=== PATIENT | female | born 1960 | race Two or more races ===

== ENCOUNTER 2016-12-11 15:14 | Emergency (ER) | payer OTHER ==
--- NOTE | 2016-12-11 15:23 | ER Document Report ---
ED Medical Screen (RME) - General Stated Complaint: FACIAL SWELLING Mode of Arrival: Ambulatory Notes: Patient presents to the emergency department with left-sided facial swelling that started last night. Reports little ear and eye pain on right side. Denies f /n/v/d. Denies trauma. Speaking in clear voice. I have greeted and performed a rapid initial assessment of this patient. A comprehensive ED assessment and evaluation of the patient, analysis of test results and completion of the medical decision making process will be conducted by additional ED providers. TRAVEL OUTSIDE OF THE [place] 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
--- NOTE | 2016-12-11 16:20 | ER Document Report ---
ED General - General Chief Complaint: Facial Swelling Stated Complaint: FACIAL SWELLING Mode of Arrival: Ambulatory Information source: Patient TRAVEL OUTSIDE OF THE [place] IN LAST 30 DAYS: No - HPI Onset: Yesterday - This 56-year-old female presented to the emergency room with sudden onset of left submandibular swelling distal to the left penia of the ear in the submandibular region she states this was sudden onset yesterday she noticed that she had a change in taste yesterday and then noted this inflammation. She has had some frequent ear issues over the last 3-4 months but is not experiencing any of those today and should be noted that those were on the same side - Related Data Allergies/Adverse Reactions: No Known Allergies Allergy (Verified 12/11/16 15:24) Past Medical History - Social History Smoking Status: Never Smoker Chew tobacco use (# tins/day): No Frequency of alcohol use: Occasional Drug Abuse: None Family History: CAD. 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 Past Surgical History: Reports: Hx Cholecystectomy, Hx Tubal Ligation - Immunizations Hx Diphtheria, Pertussis, Tetanus Vaccination: Yes Review of Systems - Review of Systems Constitutional: No symptoms reported EENT: No symptoms reported Cardiovascular: No symptoms reported Respiratory: No symptoms reported Gastrointestinal: No symptoms reported Genitourinary: No symptoms reported Female Genitourinary: No symptoms reported Musculoskeletal: No symptoms reported Skin: No symptoms reported Hematologic/Lymphatic: No symptoms reported Neurological/Psychological: No symptoms reported Physical Exam - Vital signs Vitals: Temp Pulse Resp BP Pulse Ox 98.0 F 64 18 125/82 100 12/11/16 15:19 12/11/16 15:19 12/11/16 15:19 12/11/16 15:19 12/11/16 15:19 Interpretation: Normal - General General appearance: Appears well, Alert - HEENT Head: Normocephalic, Atraumatic Eyes: Normal Pupils: PERRL - Respiratory Respiratory status: No respiratory distress Chest status: Nontender Breath sounds: Normal Chest palpation: Normal - Cardiovascular Rhythm: Regular Heart sounds: Normal auscultation Murmur: No - Abdominal Inspection: Normal Distension: No distension Bowel sounds: Normal Tenderness: Nontender Organomegaly: No organomegaly - Back Back: Normal, Nontender - Extremities General upper extremity: Normal inspection, Nontender, Normal color, Normal ROM , Normal temperature General lower extremity: Normal inspection, Nontender, Normal color, Normal ROM , Normal temperature, Normal weight bearing. No: Mookie's sign - Neurological Neuro grossly intact: Yes Cognition: Normal Orientation: AAOx4 Balwinder Coma Scale Eye Opening: Spontaneous [place] Coma Scale Verbal: Oriented [place] Coma Scale Motor: Obeys Commands [place] Coma Scale Total: 15 Speech: Normal Motor strength normal: LUE, RUE, LLE, RLE Sensory: Normal - Psychological Associated symptoms: Normal affect, Normal mood - Skin Skin Temperature: Warm Skin Moisture: Dry Skin Color: Normal Course - Vital Signs Vital signs: Temp Pulse Resp BP Pulse Ox 98.0 F 64 18 125/82 100 12/11/16 15:19 12/11/16 15:19 12/11/16 15:19 12/11/16 15:19 12/11/16 15:19 Discharge - Discharge Clinical Impression: Calculus of parotid gland duct Disposition: HOME, SELF-CARE Additional Instructions: Follow-up with private doctor for an ENT referral in 2-3 days. Follow-up with private doctor in 1 to 2 days for final radiology readings please return to the emergency room for any change worsening condition. Follow up with private M.D. for all other routine health care needs. Prescriptions: Tramadol HCl [Ultram 50 mg Tablet] 50 mg PO Q6HP PRN #40 tablet PRN Reason: Clindamycin HCl [Cleocin HCl] 150 mg PO TID #30 capsule Naproxen Sodium [Naproxen Sodium ER] 500 mg PO Q12 PRN #20 tablet.sa PRN Reason:
[2016-12-11 17:01] VITALS: BP 133/53
== END 2016-12-11 16:50 | disposition home or self-care (01) ==
LOC: ER 15:14
DX: K11.5 Sialolithiasis (principal); R22.0 Localized swelling, mass and lump, head
CPT/HCPCS: 99283

== ENCOUNTER → 2017-02-18 | Outpatient (CLI) | payer OTHER | LOC: WI 09:32 | PROVIDERS: ATTEND Family Medicine | DX: M81.8 Other osteoporosis without current pathological fracture (principal) | CPT/HCPCS: 77080 ==

== ENCOUNTER → 2018-03-07 | Outpatient (CLI) | payer OTHER ==
--- NOTE | 2018-03-08 08:21 | WOMENS IMAGING REPORT ---
EXAM DESCRIPTION: BILAT SCREENING MAMMO W/CAD COMPLETED DATE/TIME: 03/07/2018 12:03 pm REASON FOR STUDY: SCREENING MAMMO Z12.31 ENCNTR SCREEN MAMMOGRAM FOR MALIGNANT NEOPLASM OF ODALIS COMPARISON: 2008 TECHNIQUE: Standard craniocaudal and mediolateral oblique views of each breast recorded using digita l acquisition. LIMITATIONS: None. FINDINGS: Findings present which are benign by mammographic criteria. No suspicious masses, calcifi cations or architectural distortion. Pertinent benign findings: Benign right axillary tail lymph nodes Read with the assistance of CAD. .[facility] - R2 Cenova Version 1.3 .[facility] - R2 Cenova Version 1.3 .[facility] - R2 Cenova Version 2.4 .[facility] - R2 Cenova Version 2.4 .[facility] - R2 [employer] Over[employer] Crane Version 9.2 Benign mammographic findings may include one or more of the following: Smooth masses, popcorn/rim/co arse calcifications, asymmetries, post-procedure changes, and lesions with long-standing stability. IMPRESSION: BENIGN MAMMOGRAPHIC FINDINGS. BIRADS 2 BREAST DENSITY: b. There are scattered areas of fibroglandular density. BIRAD: 2 BENIGN FINDING(S) RECOMMENDATION: ROUTINE SCREENING Please continue yearly screening in February 2019. Consider bilateral screening tomosynthesis COMMENT: The patient has been notified of the results by letter per [place] requirements. Additional no tification policies are in place for contacting patient with suspicious or incomplete findings. Quality ID #[id number]: The [employer] recommends an annual screening mammogram for women aged 40 years or over. This facility utilizes a reminder system to ensure that all patients receive reminder letters, and/or direct phone calls for appointments. This includes reminders for routine scr eening mammograms, diagnostic mammograms, or other Breast Imaging Interventions when appropriate. Th is patient will be placed in the appropriate reminder system. The [employer] (ACR) has developed recommendations for screening MRI of the breast s in certain patient populations, to be used in conjunction with mammography. Breast MRI surveillanc e may be appropriate for women with more than 20% lifetime risk of developing breast cancer as deter mined by genetic testing, significant family history of the disease, or history of mantle radiation f or Hodgkins Disease. ACR Practice Guidelines 2008. TECHNICAL DOCUMENTATION: FINDING NUMBER: (1) ASSESSMENT: (1) JOB ID: [id number] [employer]- All Rights Reserved Reading location - IP/workstation name: [email or web address]
== END ==
LOC: WI 11:34
PROVIDERS: ATTEND Family Medicine
DX: Z12.31 Encounter for screening mammogram for malignant neoplasm of breast (principal)
CPT/HCPCS: 77067

== ENCOUNTER → 2019-03-24 | Outpatient (CLI) | payer OTHER ==
--- NOTE | 2019-03-24 09:57 | WOMENS IMAGING REPORT ---
EXAM DESCRIPTION: BONE DENSITY HIP/SPINE COMPLETED DATE/TIME: 03/24/2019 9:44 am REASON FOR STUDY: Z12.31 ROUTINE BILATERAL SCREENING, M85.80 OTHER SPECIFIED DISORDERS OF JOHN Z12.31 ENCNTR SCREEN MAMMOGRAM FOR MALIGNANT NEOPLASM OF ODALIS M85.80 OTH DISRD OF BONE DENSITY AND STRUCTU RE, UNSPECIFIED COMPARISON: 02/18/2017. TECHNIQUE: Dual-Energy X-ray Absorptiometry (DEXA) of the AP Spine and Hip. LIMITATIONS: None. FINDINGS: LUMBAR SPINE: The bone mineral density (BMD) measured from L1-L4 in the AP projection correlates with a T-score of 0.1, which is normal as defined by the World Health Organization. HIP: The bone mineral density (BMD) measured in the left hip correlates with a T-score of -1.2, which is o steopenia as defined by the World Health Organization. IMPRESSION: 1. LUMBAR SPINE: NORMAL. 2. HIP: OSTEOPENIA. COMMENT: The World Health Organization defines low BMD as follows: T-score: Normal: Greater than -1.0 Osteopenia: Between -1.0 and -2.5 Osteoporosis: Less than -2.5 without fractures Established osteoporosis: Less than -2.5 with fractures In general, you may wish to consider: Diagnosis Treatment Follow-up DEXA Normal BMD Prevention 2-3 years Osteopenia Prevention/Therapy 1-2 years Osteoporosis Therapy Yearly TECHNICAL DOCUMENTATION: JOB ID: [id number] [employer]- All Rights Reserved Reading location - IP/workstation name: [email or web address]
--- NOTE | 2019-03-24 09:57 | WOMENS IMAGING REPORT ---
EXAM DESCRIPTION: BILAT SCREENING MAMMO W/CAD COMPLETED DATE/TIME: 03/24/2019 9:44 am REASON FOR STUDY: Z12.31 ROUTINE BILATERAL SCREENING Z12.31 ENCNTR SCREEN MAMMOGRAM FOR MALIGNANT N EOPLASM OF ODALIS M85.80 OTH DISRD OF BONE DENSITY AND STRUCTURE, UNSPECIFIED COMPARISON: 03/07/2018 and 07/11/2009. TECHNIQUE: Standard craniocaudal and mediolateral oblique views of each breast recorded using digita l acquisition. LIMITATIONS: None. FINDINGS: No masses, calcifications or architectural distortion. No areas of suspicion. Read with the assistance of CAD. .[facility] - R2 [employer] Version 9.2 IMPRESSION: NORMAL MAMMOGRAM. BIRADS 1. BREAST DENSITY: b. There are scattered areas of fibroglandular density. BIRAD: 1 NEGATIVE RECOMMENDATION: ROUTINE SCREENING COMMENT: The patient has been notified of the results by letter per MQSA requirements. Additional no tification policies are in place for contacting patient with suspicious or incomplete findings. Quality ID #[id number]: The [employer] recommends an annual screening mammogram for women aged 40 years or over. This facility utilizes a reminder system to ensure that all patients receive reminder letters, and/or direct phone calls for appointments. This includes reminders for routine scr eening mammograms, diagnostic mammograms, or other Breast Imaging Interventions when appropriate. Th is patient will be placed in the appropriate reminder system. TECHNICAL DOCUMENTATION: FINDING NUMBER: (1) ASSESSMENT: (1) JOB ID: [id number] [employer]- All Rights Reserved Reading location - IP/workstation name: [email or web address]
== END ==
LOC: WI 08:50
PROVIDERS: ATTEND Family Medicine
DX: Z12.31 Encounter for screening mammogram for malignant neoplasm of breast (principal); M85.88 Other specified disorders of bone density and structure, other site
CPT/HCPCS: 77067; 77080